=== PATIENT | female | born 1955 ===

== ENCOUNTER 2018-07-09 11:22 | Inpatient (IN) | payer MEDICAID, OTHER ==
[2018-07-09 11:28] VITALS: BMI 32.1
[2018-07-09 12:46] LABS: MEAN PLATELET VOLUME 8.7 fL (7.2-11.7); WHITE BLOOD COUNT 4.7 K/uL (4.8-10.8)
[2018-07-09 12:55] LABS: INR 1.1; PROTHROMBIN TIME 12.4 SECONDS (9.7-12.2)
[2018-07-09 13:02] LABS: ALB/GLOB RATIO 1.6 (1.0-2.1); ALBUMIN 3.9 g/dL (3.5-5.0); ALT/SGPT 11 U/L (9-52); AST/SGOT 18 U/L (14-36); BLOOD UREA NITROGEN 14 mg/dL (7-17); CALCIUM 8.4 mg/dl (8.6-10.4); GFR NON-AFRICAN AMERICAN > 60
--- NOTE | 2018-07-09 13:07 | RAD ---
Date of service: 07/09/2018 PROCEDURE: CHEST RADIOGRAPH, 1 VIEW HISTORY: shortness of breath COMPARISON: None available. FINDINGS: LUNGS: The lungs are well inflated. There is mild pulmonary venous congestion. PLEURA: No pneumothorax or pleural effusion. CARDIOVASCULAR: Mild cardiomegaly. No aortic atherosclerotic calcifications present. OSSEOUS STRUCTURES: Within normal limits for the patient's age. VISUALIZED UPPER ABDOMEN: Normal. OTHER FINDINGS: None. IMPRESSION: No active pulmonary disease.
[2018-07-09 13:11] LABS: RBC 2.62 Mil/uL (3.80-5.20)
[2018-07-09 13:12] LABS: HEMOGLOBIN 4.5 g/dL (11.0-16.0); MEAN CELL VOLUME 59.6 fL (81.0-99.0); MEAN CORPUSCULAR HEMOGLOBIN 17.2 pg (27.0-31.0)
[2018-07-09 13:13] LABS: B-TYPE NATRIURETIC PEPTIDE 243 pg/mL (0-900); MEAN CORPUSCULAR HGB CONC 28.9 g/dL (33.0-37.0); RED CELL DISTRIBUTION WIDTH 22.7 % (11.5-14.5)
[2018-07-09 14:13] LABS: EOS # 0.1 K/uL (0.0-0.7); LYMPH # 0.6 K/uL (1.0-4.3); MONO # 0.1 K/uL (0.0-0.8); NEUT # 3.9 K/uL (1.8-7.0)
[2018-07-09 14:51] LABS: IRON 12 ug/dL (37-170)
[2018-07-09 15:01] LABS: % IRON SATURATION 3 (20-55); TOTAL IRON BINDING CAPACITY 416 ug/dL (250-450)
[2018-07-09 15:31] LABS: FERRITIN 2.5 ng/mL
--- NOTE | 2018-07-09 15:53 | CP.PCM.CON ---
<Saul Cordero - Last Filed: 07/09/18 15:46> History of Present Illness - History of Present Illness History of Present Illness: PGY6 GI Fellow Consult Note Patient is a 63yo woman with PMHx significant for rheumatoid arthritis, HTN, DM, dyslipidemia and prior partial colectomy for pre-malignant colonic lesion who presented with complaint of generalized malaise. The patient admits to weakness, fatigue, myalgias and exertional dyspnea for two weeks duration with sudden onset. Prior to this, she was in her normal state of health. As she felt symptoms were worsening and she could not ambulate without great difficulty, she came to the ED for further evaluation. Routine blood work revealed iron deficiency anemia and leukopenia. Denies any new Rx or OTC medications, vitamins or herbal supplements. No recent hematochezia but has noted occasional dark stool. Does admit to accompanying mild, LUQ and LLQ pain for the last two days. No nausea, vomiting, weight loss, change in bowel habits. 12 system ROS performed and negative except where stated PMHx: See HPI; also questionable PFO PSHx: Partial colectomy (2015) FHx: Mother - HTN, CAD, COPD; Father - DM Social: Denies tobacco, EtOH or illicit drug use Endo: Last colonoscopy in Dec 2016 - unremarkable per patient Past Patient History - Past Social History Smoking Status: Never Smoked - CARDIAC Hx Hypercholesterolemia: Yes Hx Hypertension: Yes - ENDOCRINE/METABOLIC Hx Endocrine Disorders: Yes Hx Diabetes Mellitus Type 2: Yes - MUSCULOSKELETAL/RHEUMATOLOGICAL Hx Musculoskeletal Disorders: Yes Hx Arthritis: Yes Hx Rheumatoid Arthritis: Yes - PSYCHIATRIC Hx Substance Use: No - SURGICAL HISTORY Hx Surgeries: Yes Hx Section: Yes (x1) Hx Cholecystectomy: Yes Other/Comment: Colon, - ANESTHESIA Hx Anesthesia: Yes Meds Allergies/Adverse Reactions: Allergies Allergy/AdvReac Type Severity Reaction Status Date / Time No Known Allergies Allergy Verified 07/09/18 11:26 Physical Exam - Constitutional Appears: Non-toxic, No Acute Distress - Eye Exam Eye Exam: EOMI, PERRL - ENT Exam ENT Exam: Mucous Membranes Moist - Respiratory Exam Respiratory Exam: Clear to Auscultation Bilateral. absent: Rales, Rhonchi, Wheezes - Cardiovascular Exam Cardiovascular Exam: RRR, +S1, +S2 - GI/Abdominal Exam GI & Abdominal Exam: Normal Bowel Sounds, Soft. absent: Distended, Firm, Guarding, Organomegaly, Rigid, Tenderness - Extremities Exam Extremities exam: Positive for: normal inspection. Negative for: pedal edema - Neurological Exam Neurological exam: Alert, Oriented x3 - Psychiatric Exam Psychiatric exam: Normal Affect, Normal Mood - Skin Skin Exam: Dry, Pallor, Warm Results - Vital Signs Recent Vital Signs: Last Vital Signs Temp 98.6 F 07/09/18 15:42 Pulse 85 07/09/18 15:42 Resp 18 07/09/18 15:42 BP 151/66 H 07/09/18 15:42 Pulse Ox 98 07/09/18 15:42 - Labs Result Diagrams: 07/09/18 12:36 07/09/18 12:36 Labs: Laboratory Results - last 24 hr 07/09/18 07/09/18 07/09/18 12:36 12:36 12:36 WBC 4.7 L RBC 2.62 L Hgb 4.5 L* D Hct 15.6 L MCV 59.6 L D MCH 17.2 L MCHC 28.9 L RDW 22.7 H Plt Count 246 MPV 8.7 Neut % (Auto) 83.0 H Lymph % (Auto) 12.0 L [place] % (Auto) 2.0 Eos % (Auto) 3.0 Baso % (Auto) 0.0 Neut # (Auto) 3.9 Lymph # (Auto) 0.6 L [place] # (Auto) 0.1 Eos # (Auto) 0.1 Baso # (Auto) 0.0 Differential Comment Retic Count PT 12.4 H INR 1.1 APTT 29 D-Dimer, Quantitative 247 H Sodium 136 Potassium 3.7 Chloride 103 Carbon Dioxide 24 Anion Gap 13 BUN 14 Creatinine 0.5 L Est GFR ( Amer) > 60 Est GFR (Non-Af Amer) > 60 Random Glucose 208 H D Calcium 8.4 L Iron TIBC % Saturation Ferritin Total Bilirubin 0.7 AST 18 ALT 11 Alkaline Phosphatase 77 Lactate Dehydrogenase Troponin I < 0.0120 NT-Pro-B Natriuret Pep 243 Total Protein 6.4 Albumin 3.9 Globulin 2.5 Albumin/Globulin Ratio 1.6 Vitamin B12 Blood Type Antibody Screen 07/09/18 07/09/18 07/09/18 12:36 14:36 14:36 WBC RBC Hgb Hct MCV MCH MCHC RDW Plt Count MPV Neut % (Auto) Lymph % (Auto) [place] % (Auto) Eos % (Auto) Baso % (Auto) Neut # (Auto) Lymph # (Auto) [place] # (Auto) Eos # (Auto) Baso # (Auto) Differential Comment Retic Count 3.6 H D PT INR APTT D-Dimer, Quantitative Sodium Potassium Chloride Carbon Dioxide Anion Gap BUN Creatinine Est GFR ( Amer) Est GFR (Non-Af Amer) Random Glucose Calcium Iron 12 L TIBC 416 % Saturation 3 L Ferritin Total Bilirubin AST ALT Alkaline Phosphatase Lactate Dehydrogenase Troponin I NT-Pro-B Natriuret Pep Total Protein Albumin Globulin Albumin/Globulin Ratio Vitamin B12 Blood Type O POSITIVE Antibody Screen Negative 07/09/18 14:36 WBC RBC Hgb Hct MCV MCH MCHC RDW Plt Count MPV Neut % (Auto) Lymph % (Auto) [place] % (Auto) Eos % (Auto) Baso % (Auto) Neut # (Auto) Lymph # (Auto) [place] # (Auto) Eos # (Auto) Baso # (Auto) Differential Comment Retic Count PT INR APTT D-Dimer, Quantitative Sodium Potassium Chloride Carbon Dioxide Anion Gap BUN Creatinine Est GFR ( Amer) Est GFR (Non-Af Amer) Random Glucose Calcium Iron TIBC % Saturation Ferritin 2.5 Total Bilirubin AST ALT Alkaline Phosphatase Lactate Dehydrogenase 266 L Troponin I NT-Pro-B Natriuret Pep Total Protein Albumin Globulin Albumin/Globulin Ratio Vitamin B12 244 Blood Type Antibody Screen Assessment & Plan - Assessment and Plan (Free Text) Assessment: Patient is a 63yo woman with PMHx significant for rheumatoid arthritis, HTN, DM, dyslipidemia and prior partial colectomy for pre-malignant colonic lesion who presented with complaint of generalized malaise -Unexplained Iron deficiency anemia - HGB 4.5 on admission -History of pre-malignant colonic lesion s/p partial colectomy Plan: -Patient to be transfused 2 units PRBCs today -Plan for endoscopic evaluation tomorrow with EGD/Colon -Liquid diet today NPO past midnight -Give Dulcolax 10mg tab PO now -Golytely 4L tonight -Monitor CBC -Hematology consulted - Date & Time Date: 07/09/18 Time: 15:30 <Mohinder Mota - Last Filed: 07/09/18 16:09> Meds - Medications Medications: Current Medications Bisacodyl (Dulcolax) 10 mg PO ONCE ONE Stop: 07/09/18 16:16 Polyethylene Glycol/Electrolytes (Golytely) 4,000 ml PO ONCE ONE Stop: 07/09/18 17:03 Results - Vital Signs Recent Vital Signs: Last Vital Signs Temp 98.4 F 07/09/18 15:50 Pulse 79 07/09/18 15:50 Resp 20 07/09/18 15:50 BP 116/58 L 07/09/18 15:50 Pulse Ox 97 07/09/18 15:50 - Labs Result Diagrams: 07/09/18 12:36 07/09/18 12:36 Labs: Laboratory Results - last 24 hr 07/09/18 07/09/18 07/09/18 12:36 12:36 12:36 WBC 4.7 L RBC 2.62 L Hgb 4.5 L* D Hct 15.6 L MCV 59.6 L D MCH 17.2 L MCHC 28.9 L RDW 22.7 H Plt Count 246 MPV 8.7 Neut % (Auto) 83.0 H Lymph % (Auto) 12.0 L [place] % (Auto) 2.0 Eos % (Auto) 3.0 Baso % (Auto) 0.0 Neut # (Auto) 3.9 Lymph # (Auto) 0.6 L [place] # (Auto) 0.1 Eos # (Auto) 0.1 Baso # (Auto) 0.0 Differential Comment Retic Count PT 12.4 H INR 1.1 APTT 29 D-Dimer, Quantitative 247 H Sodium 136 Potassium 3.7 Chloride 103 Carbon Dioxide 24 Anion Gap 13 BUN 14 Creatinine 0.5 L Est GFR ( Amer) > 60 Est GFR (Non-Af Amer) > 60 Random Glucose 208 H D Calcium 8.4 L Iron TIBC % Saturation Ferritin Total Bilirubin 0.7 AST 18 ALT 11 Alkaline Phosphatase 77 Lactate Dehydrogenase Troponin I < 0.0120 NT-Pro-B Natriuret Pep 243 Total Protein 6.4 Albumin 3.9 Globulin 2.5 Albumin/Globulin Ratio 1.6 Vitamin B12 Folate Blood Type Antibody Screen 07/09/18 07/09/18 07/09/18 12:36 14:36 14:36 WBC RBC Hgb Hct MCV MCH MCHC RDW Plt Count MPV Neut % (Auto) Lymph % (Auto) [place] % (Auto) Eos % (Auto) Baso % (Auto) Neut # (Auto) Lymph # (Auto) [place] # (Auto) Eos # (Auto) Baso # (Auto) Differential Comment Retic Count 3.6 H D PT INR APTT D-Dimer, Quantitative Sodium Potassium Chloride Carbon Dioxide Anion Gap BUN Creatinine Est GFR ( Amer) Est GFR (Non-Af Amer) Random Glucose Calcium Iron 12 L TIBC 416 % Saturation 3 L Ferritin Total Bilirubin AST ALT Alkaline Phosphatase Lactate Dehydrogenase Troponin I NT-Pro-B Natriuret Pep Total Protein Albumin Globulin Albumin/Globulin Ratio Vitamin B12 Folate Blood Type O POSITIVE Antibody Screen Negative 07/09/18 14:36 WBC RBC Hgb Hct MCV MCH MCHC RDW Plt Count MPV Neut % (Auto) Lymph % (Auto) [place] % (Auto) Eos % (Auto) Baso % (Auto) Neut # (Auto) Lymph # (Auto) [place] # (Auto) Eos # (Auto) Baso # (Auto) Differential Comment Retic Count PT INR APTT D-Dimer, Quantitative Sodium Potassium Chloride Carbon Dioxide Anion Gap BUN Creatinine Est GFR ( Amer) Est GFR (Non-Af Amer) Random Glucose Calcium Iron TIBC % Saturation Ferritin 2.5 Total Bilirubin AST ALT Alkaline Phosphatase Lactate Dehydrogenase 266 L Troponin I NT-Pro-B Natriuret Pep Total Protein Albumin Globulin Albumin/Globulin Ratio Vitamin B12 244 Folate 19.0 Blood Type Antibody Screen Attending/Attestation - Attestation I have personally seen and examined this patient.: Yes I have fully participated in the care of the patient.: Yes I have reviewed all pertinent clinical information: Yes Notes (Text): 07/09/18 16:05 I have seen and examined patient with GI fellow. Agree with above documentation with the following additions. In brief, this is a 63 year old female with history of DM, HTN, rheumatoid arthritis, partial colectomy for unclear reasons who presents to hospital with complaint of progressive weakness and fatigue. She reports worsening exertional dyspnea for the past two weeks along with LLQ abdominal pain for the past 2 days. She otherwise denies nausea, vomiting, fever/chills, weight loss, rectal bleeding, melena. She had a colonoscopy in December 2016 which was normal as per patient. DM/HTN Rheumatoid arthritis History of partial colectomy - unclear reasons Microcytic iron deficiency anemia, symptomatic - Liquid diet as tolerated - Patient receiving 2 units PRBC transfusion, continue to monitor H/H - Awaiting hematology recommendations - Given profound anemia, will plan for EGD/colonoscopy tomorrow to rule out GI source - If workup negative, patient may benefit from body cross sectional imaging for further evaluation - Madan bowel preparation today, NPO after midnight
[2018-07-09] MEDS ORDERED: Bisacodyl 5mg EC Tab PO ONE (16:15)
[2018-07-09] MEDS ORDERED: Peg-Electrolyte Oral Soln 4L (Golytely) PO ONE (17:02)
--- NOTE | 2018-07-09 17:51 | C.PDOC ---
History Of Present Illness 63 y/o female presents to the ER complaining of weakness which has been present for the past 2 weeks. Patient reports that she has history of anemia and she required a blood transfusion last year. At the time, she was found to have a colon mass which was removed.Patient is also complaining of chronic bilateral knee pain. Denies having fever,chills, CP, SOB, nausea, vomiting, abdominal pain, blood in urine/stool and black/ melena stool. Chief Complaint (Nursing): Lower Extremity Problem/Injury History Per: Patient History/Exam Limitations: no limitations Onset/Duration Of Symptoms: Days Current Symptoms Are (Timing): Still Present Severity: Moderate Past Medical History Reviewed: Historical Data, Nursing Documentation, Vital Signs Vital Signs: Last Vital Signs Temp 98.6 F 07/09/18 16:28 Pulse 82 07/09/18 16:28 Resp 20 07/09/18 16:28 BP 119/57 L 07/09/18 16:28 Pulse Ox 99 07/09/18 16:28 - Medical History PMH: Arthritis, HTN, Hypercholesterolemia, Rheumatoid Arthritis Surgical History: Cholecystectomy Family History: States: No Known Family Hx - Social History Hx Alcohol Use: No Hx Substance Use: No - Immunization History Hx Tetanus Toxoid Vaccination: No Hx Influenza Vaccination: No Hx Pneumococcal Vaccination: No Review Of Systems Except As Marked, All Systems Reviewed And Found Negative. Constitutional: Positive for: Weakness. Negative for: Fever, Chills Cardiovascular: Negative for: Chest Pain Respiratory: Negative for: Cough, Shortness of Breath Gastrointestinal: Negative for: Nausea, Vomiting, Abdominal Pain, Diarrhea, Melena Genitourinary: Negative for: Dysuria, Hematuria Musculoskeletal: Positive for: Other (bilateral knee pain) Physical Exam - Physical Exam Appears: Non-toxic, No Acute Distress Skin: Warm, Dry, Pale Head: Atraumatic, Normacephalic Eye(s): bilateral: Normal Inspection Nose: Normal Oral Mucosa: Moist Neck: Supple Chest: Symmetrical Cardiovascular: Rhythm Regular, Murmur (systolic murmur) Respiratory: Normal Breath Sounds, No Rales, No Rhonchi, No Wheezing Gastrointestinal/Abdominal: Normal Exam, Soft, No Tenderness, No Guarding, No Rebound Extremity: Normal ROM, No Tenderness, No Swelling Neurological/Psych: Oriented x3, Normal Speech ED Course And Treatment - Laboratory Results Result Diagrams: 07/09/18 12:36 07/09/18 12:36 Lab Results: PT 12.4 SECONDS (9.7-12.2) H 07/09/18 12:36 INR 1.1 07/09/18 12:36 APTT 29 SECONDS (21-34) 07/09/18 12:36 D-Dimer, Quantitative 247 ng/mlDDU (0-243) H 07/09/18 12:36 Troponin I < 0.0120 ng/mL (0.00-0.120) 07/09/18 12:36 NT-Pro-B Natriuret Pep 243 pg/mL (0-900) 07/09/18 12:36 Total Bilirubin 0.7 mg/dL (0.2-1.3) 07/09/18 12:36 AST 18 U/L (14-36) 07/09/18 12:36 ALT 11 U/L (9-52) 07/09/18 12:36 Alkaline Phosphatase 77 U/L (38-126) 07/09/18 12:36 Total Protein 6.4 g/dL (6.3-8.3) 07/09/18 12:36 Albumin 3.9 g/dL (3.5-5.0) 07/09/18 12:36 Globulin 2.5 gm/dL (2.2-3.9) 07/09/18 12:36 Albumin/Globulin Ratio 1.6 (1.0-2.1) 07/09/18 12:36 O2 Sat by Pulse Oximetry: 99 (RA) Pulse Ox Interpretation: Normal Medical Decision Making Medical Decision Making: Plan: --Labs --ECG --CXR Updates: Case discussed with . Patient has been admitted under the service of . Disposition - Disposition Disposition: HOSPITALIZED Disposition Time: 13:00 Condition: FAIR - Clinical Impression Clinical Impression: Symptomatic anemia - Scribe Statement The provider has reviewed the documentation as recorded by the Juhi Lara Provider Attestation: All medical record entries made by the Juhi were at my direction and personally dictated by me. I have reviewed the chart and agree that the record accurately reflects my personal performance of the history, physical exam, medical decision making, and the department course for this patient. I have also personally directed, reviewed, and agree with the discharge instructions and disposition.
--- NOTE | 2018-07-09 20:16 | CP.PCM.PN ---
Subjective - Date & Time of Evaluation Date of Evaluation: 07/09/18 Time of Evaluation: 19:30 - Subjective Subjective: H&P dictated #[id number] Objective - Vital Signs/Intake and Output Vital Signs (last 24 hours): Temp Pulse Resp BP Pulse Ox 98.5 F 80 18 133/71 99 07/09/18 20:01 07/09/18 20:01 07/09/18 20:01 07/09/18 20:01 07/09/18 18:43 Intake and Output: 07/09/18 07/10/18 18:59 06:59 Intake Total 0 Balance 0 - Medications Medications: Current Medications Cyanocobalamin (Vitamin B12 1000 Mcg/Ml Inj) 1,000 mcg IM DAILY [facility] Last Admin: 07/09/18 18:00 Dose: 1,000 mcg Folic Acid (Folic Acid) 1 mg PO DAILY [facility] Insulin Human Regular (Novolin R) 0 unit SC ACHS [facility]; Protocol - Labs Labs: 07/09/18 12:36 07/09/18 12:36 PT 12.4 SECONDS (9.7-12.2) H 07/09/18 12:36 INR 1.1 07/09/18 12:36 APTT 29 SECONDS (21-34) 07/09/18 12:36
[2018-07-09] MEDS: (Novolin R) Insulin Human Regular 100 units/ml vial SC SCH (21:31)
[2018-07-10 03:37] LABS: SQUAMOUS EPITHIAL < 1 /hpf (0-5); URINE BACTERIA RARE (<OCC); URINE BILIRUBIN NEGATIVE (NEGATIVE); URINE BLOOD NEGATIVE (NEGATIVE); URINE CLARITY Clear (Clear); URINE COLOR Yellow (YELLOW); URINE GLUCOSE (UA) NORMAL (Normal); URINE LEUKOCYTE ESTERASE NEG Leu/uL (Negative); URINE PROTEIN NEGATIVE (NEGATIVE); URINE UROBILINOGEN NORMAL mg/dL (0.2-1.0)
[2018-07-10 07:04] LABS: BASO % 1.1 % (0.0-2.0); EOS # 0.2 K/uL (0.0-0.7); EOS % 3.4 % (0.0-4.0); LYMPH % 22.2 % (20.0-40.0); MEAN CORPUSCULAR HEMOGLOBIN 19.7 pg (27.0-31.0); MEAN CORPUSCULAR HGB CONC 29.2 g/dL (33.0-37.0); MEAN PLATELET VOLUME 8.5 fL (7.2-11.7); MONO # 0.4 K/uL (0.0-0.8); NEUT # 2.9 K/uL (1.8-7.0); NEUT % 65.3 % (50.0-75.0); NRBC % 0.8 % (0.0-2.0); RBC 3.15 Mil/uL (3.80-5.20); RED CELL DISTRIBUTION WIDTH 30.8 % (11.5-14.5); WHITE BLOOD COUNT 4.5 K/uL (4.8-10.8)
[2018-07-10 07:13] LABS: INR 1.2; PROTHROMBIN TIME 13.1 SECONDS (9.7-12.2)
[2018-07-10 07:19] LABS: HEMOGLOBIN 6.2 g/dL (11.0-16.0); MEAN CELL VOLUME 67.3 fL (81.0-99.0)
[2018-07-10 07:46] LABS: ALB/GLOB RATIO 1.4 (1.0-2.1); ALBUMIN 3.4 g/dL (3.5-5.0); ALT/SGPT 15 U/L (9-52); AST/SGOT 17 U/L (14-36); BLOOD UREA NITROGEN 11 mg/dL (7-17); CALCIUM 8.1 mg/dl (8.6-10.4); GFR NON-AFRICAN AMERICAN > 60; HDL CHOLESTEROL 52 mg/dL (30-70)
[2018-07-10] MEDS: (Novolin R) Insulin Human Regular 100 units/ml vial SC SCH ×4 (07:50→22:07)
[2018-07-10 08:02] LABS: LDL CHOLESTEROL 52 mg/dL (0-129)
--- NOTE | 2018-07-10 09:03 | HP ---
CHIEF COMPLAINT: Progressive worsening of shortness of breath on exertion, fatigue, weakness and dizziness. HISTORY OF PRESENT ILLNESS: Ms. Prather is a 63-year-old female with past medical history of rheumatoid arthritis, hypertension, diabetes mellitus, hyperlipidemia, anemia, underwent partial colectomy for possible precancerous tumor of the colon. Underwent surgery at [facility]. Had last colonoscopy done in 2017. As per her, it was negative who went back to [place], stayed there for a year, returned recently. Has been taking medications from [place]. Prior to going to [place], she was following up with , primary care physician. Now has not seen any primary in the past year. Came into the emergency room with progressive worsening of fatigue, weakness, dyspnea on exertion, dizziness, progressively getting worse over the past two weeks. In the emergency room, the patient was found to be having very low H and H, and the patient is being admitted for further management. When I examined, she denies any headache, dizziness at rest. Denies any chest pain, shortness of breath at rest but complaining of dyspnea on exertion and progressively getting worse. Denies using any recent medications, [id number] medication, any pain medication other than methotrexate given by the physician. Denies using any prednisone recently. Denies any nausea, vomiting, fresh blood or dark colored stools. Denies any vaginal bleeding. She has been having two-day history of mild left lower quadrant discomfort, complaining of decreased appetite. Denies any urinary complaints. Denies any other neurologic symptoms. PAST MEDICAL HISTORY: As described, hypertension, diabetes mellitus, hyperlipidemia, rheumatoid arthritis, anemia, premalignant tumor of the colon diagnosed about three years ago. PAST SURGICAL HISTORY: Underwent varicose vein surgery, , cholecystectomy, and partial colectomy. FAMILY HISTORY: Throat cancer in father. Mother from questionable lung complications. PERSONAL HISTORY: She is , having three children. Lives with family. She is unemployed. SOCIAL HISTORY: Denies smoking, alcohol, or drug abuse. ALLERGIES: NO KNOWN DRUG ALLERGIES. MEDICATIONS: Include methotrexate 2.5 mg daily, folic acid 0.4 mg daily, metformin 850 mg p.o. b.i.d., losartan 25 mg daily, Lipitor 10 mg p.o. at bedtime, Protonix 40 mg daily. REVIEW OF SYSTEMS: As described in history of present illness. All other systems reviewed and were found to be negative. PHYSICAL EXAMINATION: GENERAL: Middle-aged female lying in bed, in no acute distress. VITAL SIGNS: Blood pressure 158/70, pulse 84, respirations 20, temperature 98.1 degrees Fahrenheit, O2 sat 100% on room air. HEENT: Pupils equal, round, reacting to light and accommodation. Extraocular muscles intact. No icterus. Marked pallor. No oral thrush. No pharyngeal congestion. NECK: Supple. No JVD. LUNGS: Bilateral vesicular breath sounds. No wheezing. No rhonchi. CARDIOVASCULAR SYSTEM: S1, S2 present. Systolic murmur heard. ABDOMEN: Soft, nontender. Bowel sounds present. No guarding. No rigidity. No rebound tenderness noted. CENTRAL NERVOUS SYSTEM: Alert, awake, oriented x3. No focal deficits noted. EXTREMITIES: No edema. Palpable peripheral pulses. LABORATORY DATA: Done from the emergency room, WBC 4.7, hemoglobin 4.5, hematocrit 15.6, platelets 246. PT 12.4, INR 1.1, PTT 29, d-dimer 247. Sodium 136, potassium 3.7, chloride 103, bicarb 24, BUN 14, creatinine 0.5, glucose 208, calcium 8.4. Iron 12, TIBC 416, iron saturation 3, ferritin 2.5, total bilirubin 0.7, AST 18, ALT 11, alkaline phosphatase 77, LDH 266, troponin less than 0.012, proBNP 243, total protein 6.4, albumin 3.9, vitamin B12 of 244, folate 19. DIAGNOSTIC DATA: Chest x-ray negative for any infiltrate. EKG consistent with normal sinus rhythm at 83 beats per minutes. No acute ST-T changes noted. ASSESSMENT: A middle-aged female with history of hypertension, diabetes mellitus, hyperlipidemia, rheumatoid arthritis, history of anemia, status post partial colectomy for possible premalignant lesion of the colon about three years ago. Last colonoscopy was in 2017. Has been taking medication from [place], came into the emergency room with two-week history of progressive worsening of fatigue, weakness, dizziness, dyspnea on exertion, decreased appetite. In the ED, the patient was found to be having hemoglobin of 4.5, and the patient is being admitted for further evaluation. 1. Severe symptomatic anemia. 2. Iron-deficiency anemia and low B12 levels. 3. Hypertension. 4. Diabetes mellitus. 5. Hyperlipidemia. 6. Rheumatoid arthritis. 7. Prior history of partial colectomy for premalignant lesion of the colon. PLAN: The patient is being admitted to telemetry. Received one unit of PRBC in the ED. We will transfuse another unit of PRBC. Repeat serial CBCs. Retic count is elevated. We will supplement B12. GI consult appreciated for possible colonoscopy and EGD in a.m. The patient wants to be kept n.p.o. We will repeat labs in a.m. We will check CEA level. We will consider CT scan of the chest, abdomen, and pelvis. We will obtain Hematology consult with Dr. Kirby. We will add further recommendation as her clinical course progresses. Conrad Silva MD
--- NOTE | 2018-07-10 09:30 | CP.PCM.PN ---
Subjective - Date & Time of Evaluation Date of Evaluation: 07/10/18 Time of Evaluation: 09:30 - Subjective Subjective: Progress note dictated #[id number] Objective - Vital Signs/Intake and Output Vital Signs (last 24 hours): Temp Pulse Resp BP Pulse Ox 97.8 F 69 20 142/71 98 07/10/18 07:30 07/10/18 07:56 07/10/18 07:30 07/10/18 07:30 07/10/18 07:30 Intake and Output: 07/10/18 07/10/18 06:59 18:59 Intake Total 1400 Balance 1400 - Medications Medications: Current Medications Cyanocobalamin (Vitamin B12 1000 Mcg/Ml Inj) 1,000 mcg IM DAILY [facility] Last Admin: 07/09/18 18:00 Dose: 1,000 mcg Folic Acid (Folic Acid) 1 mg PO DAILY [facility] Insulin Human Regular (Novolin R) 0 unit SC ACHS [facility]; Protocol Last Admin: 07/10/18 07:50 Dose: Not Given - Labs Labs: 07/10/18 06:56 07/10/18 06:56 PT 13.1 SECONDS (9.7-12.2) H 07/10/18 06:56 INR 1.2 07/10/18 06:56 APTT 30 SECONDS (21-34) 07/10/18 06:56
[2018-07-10] MEDS ORDERED: Lactated Ringer's 1,000 ML IV ONE (13:40)
[2018-07-10] MEDS ORDERED: Propofol 10 mg/ml Inj (20 ML) ONE (13:42)
[2018-07-10] MEDS ORDERED: Midazolam 2 MG/2 ML VIAL ONE (13:43)
--- NOTE | 2018-07-10 14:32 | CP.PCM.PN ---
Subjective - Date & Time of Evaluation Date of Evaluation: 07/10/18 Time of Evaluation: 14:29 - Subjective Subjective: Patient seen and examined, no acute events overnight. She is seen resting in bed comfortably. She denies abdominal pain, nausea, vomiting, fever/chills, melena, rectal bleeding. s/p EGD and colonoscopy today showing gastritis, hiatal hernia, sigmoid diverticulosis, ileocolonic anastomosis, internal hemorrhoids. Objective - Vital Signs/Intake and Output Vital Signs (last 24 hours): Temp Pulse Resp BP Pulse Ox 98 F 73 20 156/68 H 98 07/10/18 13:09 07/10/18 13:09 07/10/18 13:09 07/10/18 13:09 07/10/18 13:07 Intake and Output: 07/10/18 07/10/18 06:59 18:59 Intake Total 1400 87 Balance 1400 87 - Medications Medications: Current Medications Cyanocobalamin (Vitamin B12 1000 Mcg/Ml Inj) 1,000 mcg IM DAILY [facility] Last Admin: 07/10/18 10:22 Dose: 1,000 mcg Folic Acid (Folic Acid) 1 mg PO DAILY [facility] Last Admin: 07/10/18 10:22 Dose: 1 mg Furosemide (Lasix) 20 mg IVP ONCE PRN PRN Reason: in between blood transfusions Insulin Human Regular (Novolin R) 0 unit SC [facility]; Protocol Last Admin: 07/10/18 11:40 Dose: Not Given - Labs Labs: 07/10/18 06:56 07/10/18 06:56 PT 13.1 SECONDS (9.7-12.2) H 07/10/18 06:56 INR 1.2 07/10/18 06:56 APTT 30 SECONDS (21-34) 07/10/18 06:56 Assessment and Plan - Assessment and Plan (Free Text) Assessment: DM/HTN Hyperlipidemia Iron deficiency anemia Prior history of partial colectomy, unclear reason s/p EGD and colonoscopy today without any evidence of recent or active bleeding noted Plan: - Advance diet as tolerated - H/H stable, s/p PRBC transfusion, continue to monitor - Follow up hematology recommendations - Would pursue alternate sources of iron deficiency anemia including hematologic, 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 Please reconsult as necessary, thank you.
[2018-07-10 15:09] VITALS: RESP 20
--- NOTE | 2018-07-10 16:02 | PN ---
DATE: 07/10/2018 SUBJECTIVE: The patient is seen and examined at bedside. The patient offers no new complaints. She is complaining of less shortness of breath this morning. Denies any other complaints. PHYSICAL EXAMINATION: GENERAL: Middle-aged female, lying in bed, in no acute distress. VITAL SIGNS: Blood pressure 142/71, pulse 69, respirations 20, temperature 97.8 degrees Fahrenheit, O2 saturation 98% on room air. HEENT: Pupils equal, round, and reacting to light and accommodation. Extraocular muscles are intact. No icterus. No pallor. No oral thrush. No pharyngeal congestion. NECK: Supple. No JVD. LUNGS: Bilateral vesicular breath sounds. No wheezing. No rhonchi. CARDIOVASCULAR: S1 and S2 present, regular. ABDOMEN: Soft and nontender. Bowel sounds present. No guarding. No rigidity. No rebound tenderness noted. CENTRAL NERVOUS SYSTEM: Alert, awake, oriented x3. No focal deficits noted. EXTREMITIES: No edema. Palpable peripheral pulses. MEDICATIONS: Include vitamin B12 1000 mcg daily, folic acid 1 mg daily, Lasix 20 mg IV push p.r.n. between blood transfusion. LABORATORY DATA: Done from this morning: WBC 4.5, hemoglobin 6.2, hematocrit 21.2, platelets 191. PT 13.1, INR 1, and PTT 30. Sodium 137, potassium 4, chloride 106, bicarb 26, BUN 11, creatinine 0.5, glucose 102, hemoglobin A1c 5.8, calcium 8.1, phosphorus 3.7, magnesium 1.8, CEA is 0.4, TSH is 2.33, cholesterol is 108, triglycerides 102, LDL 52, HDL 52. UA negative. 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 Received 2 units of PRBC with slightly improved hemoglobin. Will supplement B12. Start iron supplementation. The patient is scheduled for colonoscopy and esophagogastroduodenoscopy this morning. We will follow up with GI and Hematology. We will repeat labs in a.m. Conrad Silva MD [facility] # [id number]
--- NOTE | 2018-07-10 18:08 | CARD ---
APPROVED REPORT Date of service: 07/09/2018 EKG Measurement Heart [id number] <Conclusion> Normal sinus rhythm Normal ECG
[2018-07-10] MEDS: Aluminum Hydroxide/Magnesium Hydroxide Susp (30 mL) PO PRN (19:50)
--- NOTE | 2018-07-10 21:08 | CP.PCM.CON ---
History of Present Illness - History of Present Illness History of Present Illness: 63 year old female with a history of HTN, DM, HL, rheumatoid arthritis, ?colon cancer s/p surgery 3 years ago, admitted with symptomatic anemia. The patient notes to progressive dyspnea with exertion for the past 1-2 weeks. She denies abnormal bleeding and bruising. She notes to abdominal discomfort and diminished appetite. In the ER she was found to have a hgb of 4.6. She is s/p 2U PRBC, EGD, and colonoscopy. Past medical history: HTN, DM, HL, rheumatoid arthritis, ?colon cancer s/p surgery 3 years ago. Past surgical history: Colon surgery Family history: Denies hematologic and oncologic problems Social history: Denies tobacco, alcohol, and illicit drug use. Allergies: NKA Review of systems: All remaining review of systems including HEENT, cardiovascular, respiratory, gastrointestinal, genitourinary, musculoskeletal, dermatologic, neurologic, and psychiatric are negative unless mentioned in the HPI. Past Patient History - Past Social History Smoking Status: Never Smoked - CARDIAC Hx Hypercholesterolemia: Yes Hx Hypertension: Yes - ENDOCRINE/METABOLIC Hx Endocrine Disorders: Yes Hx Diabetes Mellitus Type 2: Yes - MUSCULOSKELETAL/RHEUMATOLOGICAL Hx Arthritis: Yes Hx Rheumatoid Arthritis: Yes - PSYCHIATRIC Hx Substance Use: No - SURGICAL HISTORY Hx Cholecystectomy: Yes - ANESTHESIA Hx Anesthesia: Yes Hx Anesthesia Reactions: No Hx Malignant Hyperthermia: No Has any member of the family had a problem w/ anesthesia?: No Meds Allergies/Adverse Reactions: Allergies Allergy/AdvReac Type Severity Reaction Status Date / Time No Known Allergies Allergy Verified 07/09/18 11:26 - Medications Medications: Current Medications Al Hydrox/Mg Hydrox/Simethicone (Maalox 30 Ml) 30 ml PO Q8 PRN PRN Reason: Indigestion / Heartburn Last Admin: 07/10/18 19:50 Dose: 30 ml Cyanocobalamin (Vitamin B12 1000 Mcg/Ml Inj) 1,000 mcg IM DAILY [facility] Last Admin: 07/10/18 10:22 Dose: 1,000 mcg Folic Acid (Folic Acid) 1 mg PO DAILY [facility] Last Admin: 07/10/18 10:22 Dose: 1 mg Furosemide (Lasix) 20 mg IVP ONCE PRN PRN Reason: in between blood transfusions Last Admin: 07/10/18 18:38 Dose: 20 mg Insulin Human Regular (Novolin R) 0 unit SC [facility]; Protocol Last Admin: 07/10/18 17:30 Dose: 1 unit Physical Exam - Head Exam Head Exam: ATRAUMATIC - Eye Exam Eye Exam: Normal appearance - ENT Exam ENT Exam: Mucous Membranes Dry - Respiratory Exam Respiratory Exam: NORMAL BREATHING PATTERN - Cardiovascular Exam Cardiovascular Exam: +S1, +S2 - GI/Abdominal Exam GI & Abdominal Exam: Normal Bowel Sounds - Extremities Exam Extremities exam: Positive for: normal inspection - Neurological Exam Neurological exam: Oriented x3 - Psychiatric Exam Psychiatric exam: Normal Affect, Normal Mood - Skin Skin Exam: Warm Results - Vital Signs Recent Vital Signs: Last Vital Signs Temp 98.1 F 07/10/18 21:06 Pulse 71 07/10/18 21:06 Resp 20 07/10/18 21:06 BP 151/76 H 07/10/18 21:06 Pulse Ox 97 07/10/18 15:03 - Labs Result Diagrams: 07/10/18 06:56 07/10/18 06:56 Labs: Laboratory Results - last 24 hr 07/09/18 07/09/18 07/09/18 12:36 12:36 21:16 WBC RBC Hgb Hct MCV MCH MCHC RDW Plt Count MPV Neut % (Auto) Lymph % (Auto) Bailey % (Auto) Eos % (Auto) Baso % (Auto) Neut # (Auto) Lymph # (Auto) Bailey # (Auto) Eos # (Auto) Baso # (Auto) Smear Path Review PT INR APTT Sodium Potassium Chloride Carbon Dioxide Anion Gap BUN Creatinine Est GFR ( Amer) Est GFR (Non-Af Amer) POC Glucose (mg/dL) 230 H Random Glucose Hemoglobin A1c Calcium Phosphorus Magnesium Total Bilirubin AST ALT Alkaline Phosphatase Total Protein Albumin Globulin Albumin/Globulin Ratio Triglycerides Cholesterol LDL Cholesterol Direct HDL Cholesterol Carcinoembryonic Ag TSH 3rd Generation Urine Color Urine Clarity Urine pH Ur Specific [place] Urine Protein Urine Glucose (UA) Urine Ketones Urine Blood Urine Nitrate Urine Bilirubin Urine Urobilinogen Ur Leukocyte Esterase Urine WBC (Auto) Urine RBC (Auto) Ur Squamous Epith Cells Urine Bacteria Blood Type O POSITIVE Antibody Screen Negative 07/09/18 07/10/18 07/10/18 21:28 03:21 06:25 WBC RBC Hgb Hct MCV MCH MCHC RDW Plt Count MPV Neut % (Auto) Lymph % (Auto) Bailey % (Auto) Eos % (Auto) Baso % (Auto) Neut # (Auto) Lymph # (Auto) Bailey # (Auto) Eos # (Auto) Baso # (Auto) Smear Path Review PT INR APTT Sodium Potassium Chloride Carbon Dioxide Anion Gap BUN Creatinine Est GFR ( Amer) Est GFR (Non-Af Amer) POC Glucose (mg/dL) 223 H 102 Random Glucose Hemoglobin A1c Calcium Phosphorus Magnesium Total Bilirubin AST ALT Alkaline Phosphatase Total Protein Albumin Globulin Albumin/Globulin Ratio Triglycerides Cholesterol LDL Cholesterol Direct HDL Cholesterol Carcinoembryonic Ag TSH 3rd Generation Urine Color Yellow Urine Clarity Clear Urine pH 6.0 Ur Specific [place] 1.020 Urine Protein Negative Urine Glucose (UA) Normal Urine Ketones Negative Urine Blood Negative Urine Nitrate Negative Urine Bilirubin Negative Urine Urobilinogen Normal Ur Leukocyte Esterase Neg Urine WBC (Auto) 2 Urine RBC (Auto) 1 Ur Squamous Epith Cells < 1 Urine Bacteria Rare Blood Type Antibody Screen 07/10/18 07/10/18 07/10/18 06:56 06:56 06:56 WBC 4.5 L RBC 3.15 L Hgb 6.2 L* Hct 21.2 L MCV 67.3 L D MCH 19.7 L MCHC 29.2 L RDW 30.8 H Plt Count 191 MPV 8.5 Neut % (Auto) 65.3 Lymph % (Auto) 22.2 Bailey % (Auto) 8.0 Eos % (Auto) 3.4 Baso % (Auto) 1.1 Neut # (Auto) 2.9 Lymph # (Auto) 1.0 Bailey # (Auto) 0.4 Eos # (Auto) 0.2 Baso # (Auto) 0.0 Smear Path Review PT 13.1 H INR 1.2 APTT 30 Sodium 137 Potassium 4.0 Chloride 106 Carbon Dioxide 26 Anion Gap 9 L BUN 11 Creatinine 0.5 L Est GFR ( Amer) > 60 Est GFR (Non-Af Amer) > 60 POC Glucose (mg/dL) Random Glucose 96 D Hemoglobin A1c Calcium 8.1 L Phosphorus 3.7 Magnesium 1.8 Total Bilirubin 0.9 AST 17 ALT 15 Alkaline Phosphatase 68 Total Protein 5.7 L Albumin 3.4 L Globulin 2.3 Albumin/Globulin Ratio 1.4 Triglycerides 102 Cholesterol 108 LDL Cholesterol Direct 52 HDL Cholesterol 52 Carcinoembryonic Ag 0.4 TSH 3rd Generation 2.33 Urine Color Urine Clarity Urine pH Ur Specific [place] Urine Protein Urine Glucose (UA) Urine Ketones Urine Blood Urine Nitrate Urine Bilirubin Urine Urobilinogen Ur Leukocyte Esterase Urine WBC (Auto) Urine RBC (Auto) Ur Squamous Epith Cells Urine Bacteria Blood Type Antibody Screen 07/10/18 07/10/18 06:56 11:20 WBC RBC Hgb Hct MCV MCH MCHC RDW Plt Count MPV Neut % (Auto) Lymph % (Auto) Bailey % (Auto) Eos % (Auto) Baso % (Auto) Neut # (Auto) Lymph # (Auto) Bailey # (Auto) Eos # (Auto) Baso # (Auto) Smear Path Review PT INR APTT Sodium Potassium Chloride Carbon Dioxide Anion Gap BUN Creatinine Est GFR ( Amer) Est GFR (Non-Af Amer) POC Glucose (mg/dL) 114 H Random Glucose Hemoglobin A1c 5.8 Calcium Phosphorus Magnesium Total Bilirubin AST ALT Alkaline Phosphatase Total Protein Albumin Globulin Albumin/Globulin Ratio Triglycerides Cholesterol LDL Cholesterol Direct HDL Cholesterol Carcinoembryonic Ag TSH 3rd Generation Urine Color Urine Clarity Urine pH Ur Specific [place] Urine Protein Urine Glucose (UA) Urine Ketones Urine Blood Urine Nitrate Urine Bilirubin Urine Urobilinogen Ur Leukocyte Esterase Urine WBC (Auto) Urine RBC (Auto) Ur Squamous Epith Cells Urine Bacteria Blood Type Antibody Screen Assessment & Plan (1) Anemia Assessment and Plan: hypoproliferative erythroid response - no evidence of hemolysis iron and b12 deficiency on B12 supplementation, will start IV iron EGD/colonoscopy findings noted; ?chronic intermittent internal hemorrhoid bleed UA negative for blood will order CT A/P with PO+IV contrast to rule out pathology contributing to anemia outpatient capsule endoscopy Status: Acute (2) Leukopenia Assessment and Plan: likely benign Thank you for this interesting consult. Status: Acute
[2018-07-11 07:32] LABS: BASO # 0.1 K/uL (0.0-0.2); EOS # 0.3 K/uL (0.0-0.7); EOS % 3.7 % (0.0-4.0); LYMPH # 1.1 K/uL (1.0-4.3); LYMPH % 16.4 % (20.0-40.0); MEAN CORPUSCULAR HEMOGLOBIN 22.3 pg (27.0-31.0); MEAN CORPUSCULAR HGB CONC 31.4 g/dL (33.0-37.0); MEAN PLATELET VOLUME 8.5 fL (7.2-11.7); MONO # 0.6 K/uL (0.0-0.8); MONO % 8.4 % (0.0-10.0); NEUT # 4.8 K/uL (1.8-7.0); NEUT % 70.5 % (50.0-75.0); NRBC % 0.8 % (0.0-2.0); RBC 4.07 Mil/uL (3.80-5.20); RED CELL DISTRIBUTION WIDTH 31.3 % (11.5-14.5)
[2018-07-11 07:44] LABS: ALB/GLOB RATIO 1.4 (1.0-2.1); ALBUMIN 3.5 g/dL (3.5-5.0); ALT/SGPT 21 U/L (9-52); AST/SGOT 17 U/L (14-36); BLOOD UREA NITROGEN 11 mg/dL (7-17); CALCIUM 8.4 mg/dl (8.6-10.4); GFR NON-AFRICAN AMERICAN > 60
[2018-07-11 08:01] LABS: HEMOGLOBIN 9.1 g/dL (11.0-16.0); MEAN CELL VOLUME 71.1 fL (81.0-99.0); WHITE BLOOD COUNT 6.8 K/uL (4.8-10.8)
[2018-07-11 08:16] LABS: FERRITIN 4.6 ng/mL
[2018-07-11 08:46] LABS: FOLATE > 20.0 ng/mL
[2018-07-11] MEDS: (Novolin R) Insulin Human Regular 100 units/ml vial SC SCH ×4 (09:02→22:12)
--- NOTE | 2018-07-11 09:38 | CP.PCM.PN ---
Subjective - Date & Time of Evaluation Date of Evaluation: 07/11/18 Time of Evaluation: 09:38 - Subjective Subjective: Progress note dictated # [id number] Objective - Vital Signs/Intake and Output Vital Signs (last 24 hours): Temp Pulse Resp BP Pulse Ox 98.2 F 66 20 145/78 97 07/11/18 07:20 07/11/18 07:20 07/11/18 07:20 07/11/18 07:20 07/11/18 07:20 Intake and Output: 07/11/18 07/11/18 06:59 18:59 Intake Total 1115 Output Total 1375 Balance -260 - Medications Medications: Current Medications Al Hydrox/Mg Hydrox/Simethicone (Maalox 30 Ml) 30 ml PO Q8 PRN PRN Reason: Indigestion / Heartburn Last Admin: 07/10/18 19:50 Dose: 30 ml Cyanocobalamin (Vitamin B12 1000 Mcg/Ml Inj) 1,000 mcg IM DAILY [facility] Last Admin: 07/10/18 10:22 Dose: 1,000 mcg Ferric Sodium Gluconate Complex (Ferrlecit) 125 mg IVPB DAILY [facility] Stop: 07/19/18 10:01 Folic Acid (Folic Acid) 1 mg PO DAILY [facility] Last Admin: 07/10/18 10:22 Dose: 1 mg Furosemide (Lasix) 20 mg IVP ONCE PRN PRN Reason: in between blood transfusions Last Admin: 07/10/18 18:38 Dose: 20 mg Insulin Human Regular (Novolin R) 0 unit SC [facility]; Protocol Last Admin: 07/11/18 09:02 Dose: Not Given - Labs Labs: 07/11/18 07:11 07/11/18 07:11 PT 13.1 SECONDS (9.7-12.2) H 07/10/18 06:56 INR 1.2 07/10/18 06:56 APTT 30 SECONDS (21-34) 07/10/18 06:56
[2018-07-11] MEDS: Ferric Sodium Gluconat Complex 62.5 mg/5 ml Vial IVPB SCH (10:12)
[2018-07-11] MEDS ORDERED: Iohexol 240 (50 ml) PO ONE (10:15)
[2018-07-11] MEDS: Pantoprazole 40 mg EC Tab PO SCH (10:52)
--- NOTE | 2018-07-11 11:04 | CT ---
Date of service: 07/11/2018 PROCEDURE: CT HEAD WITHOUT CONTRAST. HISTORY: Dizziness COMPARISON: None available. TECHNIQUE: Axial computed tomography images were obtained through the head/brain without intravenous contrast. Radiation dose: Total exam DLP = 1046.82 mGy-cm. This CT exam was performed using one or more of the following dose reduction techniques: Automated exposure control, adjustment of the mA and/or kV according to patient size, and/or use of iterative reconstruction technique. FINDINGS: HEMORRHAGE: No acute parenchymal, subarachnoid nor extra-axial hemorrhage BRAIN: Suspect very minimal chronic periventricular white matter ischemic changes. Moderate generalized volume loss. Vascular calcifications both carotid siphons.. VENTRICLES: No obstructive hydrocephalus. CALVARIUM: Unremarkable. PARANASAL SINUSES: Unremarkable as visualized. No significant inflammatory changes. MASTOID AIR CELLS: Unremarkable as visualized. No inflammatory changes. OTHER FINDINGS: None. IMPRESSION: No acute intracranial hemorrhage. Suspect minor chronic periventricular white matter ischemic changes. Moderate generalized volume loss
[2018-07-11] MEDS: Aluminum Hydroxide/Magnesium Hydroxide Susp (30 mL) PO PRN ×2 (12:28→17:50)
--- NOTE | 2018-07-11 12:33 | CARD ---
APPROVED REPORT Date of service: 07/11/2018 EXAM: Two-dimensional and M-mode echocardiogram with Doppler and color Doppler. Other Information Quality : GoodRhythm : INDICATION Dyspnea Fatigue RISK FACTORS Hypertension Diabetes 2D DIMENSIONS IVSd0.8 (0.7-1.1cm)Aortic Root (2D)2.4 (2.0-3.7cm) LVDd4.9 (3.9-5.9cm)PWd0.8 (0.7-1.1cm) LA Zbungd85 (18-58mL)LVDs3.2 (2.5-4.0cm) FS (%) 34.4 %LVEF (%)63.2 (>50%) LVEF (Manrique's)65.58 %IVC0.00 cm M-Mode DIMENSIONS Left Atrium (MM)3.67 (2.5-4.0cm)IVSd0.76 (0.7-1.1cm) Aortic Root2.70 (2.2-3.7cm)LVDd5.01 (4.0-5.6cm) Aortic Cusp Exc.1.76 (1.5-2.0cm)PWd0.82 (0.7-1.1cm) FS (%) 28 %LVDs3.61 (2.0-3.8cm) TAPSE14.58 cmLVEF (%)54 (>50%) Mitral Valve MV E Urofjgvu438.9cm/sMV A Jhlwdogj048.8cm/sE/A ratio1.0 TDI Lateral E' Peak V10.93cm/sMedial E' Peak V7.00cm/sE/Lateral E'9.3 E/Medial E'14.6 Tricuspid Valve TR Peak Suzneayb560bq/sTR Peak Gr.28agYvFSIK26hdOc LEFT VENTRICLE The left ventricle is normal size. There is normal left ventricular wall thickness. Left ventricle systolic function is normal. The Ejection Fraction is 65-70%. There is normal LV segmental wall motion. Transmitral Doppler flow pattern is Grade I-abnormal relaxation pattern. There is no ventricular septal defect visualized. RIGHT VENTRICLE The right ventricle is normal size. The right ventricular systolic function is normal. ATRIA The left atrium is mildly dilated. The right atrium size is normal. AORTIC VALVE The aortic valve is mildly sclerotic. The aortic valve is tri-cuspid. No aortic regurgitation is present. There is no aortic valvular stenosis. MITRAL VALVE The mitral valve is normal in structure. There is no evidence of mitral valve prolapse. There is no mitral valve regurgitation noted. TRICUSPID VALVE The tricuspid valve is normal in structure. There is mild tricuspid regurgitation. Right ventricular systolic pressure is estimated at 40-50 mmHg. There is moderate pulmonary hypertension. PULMONIC VALVE The pulmonic valve is not well visualized. There is trace pulmonic valvular regurgitation. GREAT VESSELS The aortic root is normal in size. The ascending aorta is normal in size. The IVC is normal in size and collapses >50% with inspiration. PERICARDIAL EFFUSION There is no pericardial effusion. <Conclusion> Left ventricle systolic function is normal. The Ejection Fraction is 65-70%. Transmitral Doppler flow pattern is Grade I-abnormal relaxation pattern. There is moderate pulmonary hypertension.
[2018-07-11] MEDS ORDERED: Iohexol 300 100 ML IJ ONE (16:06)
--- NOTE | 2018-07-11 17:54 | CT ---
Date of service: 07/11/2018 PROCEDURE: CT Abdomen and Pelvis with contrast HISTORY: Anemia and history of colon cancer COMPARISON: No prior study available comparison. High the height TECHNIQUE: Contiguous helical/transaxial sections of the abdomen pelvis performed following oral and intravenous injection of approximately 100 cc Omnipaque 300 contrast material. Additional 2D sagittal and coronal reformats generated Radiation dose: Total exam DLP = 748.05 mGy-cm. This CT exam was performed using one or more of the following dose reduction techniques: Automated exposure control, adjustment of the mA and/or kV according to patient size, and/or use of iterative reconstruction technique. FINDINGS: LOWER THORAX: Unremarkable. Suspect trace bilateral effusions right larger than left and minimal bibasilar atelectasis. Minimal scarring changes also seen in both lung bases. Heart appears mildly enlarged. No significant pericardial effusion. There is a large hiatal hernia. LIVER: Liver exhibits relatively normal size measuring approximately 15.4 cm in CC dimension. Minor fatty hepatic infiltration. No obvious hepatic masses or collections identified on this study. GALLBLADDER AND BILE DUCTS: Cholecystectomy. PANCREAS: Pancreas is atrophic and fatty replaced. SPLEEN: Spleen measures nearly 13 cm in AP dimension ADRENALS: There are no adrenal lesions seen.. KIDNEYS AND URETERS: Kidneys demonstrate relatively symmetric size and nephrograms. No evidence of nephrolithiasis or hydronephrosis. No obvious renal masses or collections. VASCULATURE: Unremarkable. No aortic aneurysm. Minimal aortic tic atherosclerotic calcification or mural plaque present. BOWEL: Evaluation of the bowel is somewhat limited due to incomplete opacification. The stomach is partially distended with oral contrast material and air. Visualized loops of small bowel exhibit normal contour and caliber. No evidence of acute mechanical small bowel obstruction. Apparent right hemicolectomy with and apparent anastomosis in the right hepatic flexure region.. There appears to be some localized wall thickening in the splenic flexure region which could be some combination of incomplete distension, peristalsis unopacified stool however given the patient's history of colon carcinoma follow-up of colonoscopy suggested if not recently performed to exclude the possibility of a invasive of colon wall lesion. APPENDIX: Not visualized PERITONEUM: Unremarkable. No free fluid. No free air. There is a relatively large fat containing left paraumbilical ventral wall hernia. LYMPH NODES: Unremarkable. No enlarged lymph nodes. BLADDER: The urinary bladder is partially distended with slight thick-walled appearance. Rule out cystitis... REPRODUCTIVE: Uterus appears unremarkable. BONES: Minor multilevel degenerative spondylosis of the lower thoracic and lumbar spine.. Mild scoliotic deformity seen at the lower thoracic and mid upper/mid lumbar spine region. Mild degenerative osteoarthritis both hip joints. OTHER FINDINGS: None. IMPRESSION: Apparent right hemicolectomy with anastomosis seen region of the hepatic flexure. Mild localized of discontinuous wall thickening in the splenic flexure region likely due to a combination of incomplete distension peristalsis and unopacified stool however given patient's history of colon carcinoma, follow-up colonoscopy if not recently performed recommended for further evaluation. Alternately, PET-CT scan may be prudent. Cholecystectomy. Borderline splenomegaly. Large hiatal hernia. Large fat containing left paraumbilical hernia.
--- NOTE | 2018-07-12 02:32 | PN ---
DATE: 07/11/2018 SUBJECTIVE: The patient is seen and examined at bedside. The patient is complaining of worsening dizziness upon getting up, claiming that the room is spinning around. She is not able to ambulate to the bathroom because of the dizziness. Denies any dyspnea on exertion. She claims that she had a history of vertigo, but she never got any medication in the past. Denies any other new complaints. PHYSICAL EXAMINATION: GENERAL: A middle-aged female, lying in bed, in no acute distress. VITAL SIGNS: Blood pressure 145/78, pulse 66, respirations 20, temperature 98.2 degrees Fahrenheit, O2 sats 97% on room air. HEENT: Pupils equal, round and reacting to light and accommodation. Extraocular muscles intact. No icterus. Positive pallor. No oral thrush. No pharyngeal congestion. NECK: Supple. No JVD. LUNGS: Bilateral vesicular breath sounds. No wheezing. No rhonchi. CARDIOVASCULAR SYSTEM: S1 and S2 present, regular. ABDOMEN: Soft, nontender. Bowel sounds present. No guarding. No rigidity. No rebound tenderness noted. CENTRAL NERVOUS SYSTEM: Alert, awake, oriented x3. No focal deficits noted. EXTREMITIES: No edema. Palpable peripheral pulses. MEDICATIONS: Include Maalox 30 mL as needed, B12 injections 1000 mcg daily, 125 mg IV daily, folic acid 1 mg daily, Lasix 20 mg as needed, Cozaar 25 mg daily, meclizine 12.5 mg p.o. every 8 hours p.r.n., Glucophage 850 mg p.o. b.i.d., Protonix 40 mg daily, Crestor 5 mg p.o. at bedtime. LABORATORY DATA: Labs from today: WBC 6.8, hemoglobin 9.1, hematocrit 28.9, platelets 184. Retic count 2.1. Sodium 138, potassium 4.6, chloride 103, bicarb 28, BUN 11, creatinine 0.6, glucose 117, calcium 8.4, ferritin 4.6, total bilirubin 1.6, AST 17, ALT 21, alkaline phosphatase 71, total protein 6.1, albumin 3.5. Folate more than 20. CT of the head, no acute intracranial hemorrhage, suspect minor chronic periventricular white matter ischemic changes, moderate generalized volume loss. CT of the abdomen and pelvis, mild localized discontinuous wall thickening in the splenic flexure region, likely due to a combination of incomplete distention peristalsis and unopacified stool, cholecystectomy, borderline splenomegaly, large hiatal hernia, large sac containing left paraumbilical hernia, biopsy consistent with benign gastric type mucosa showing mild acute inflammation and patchy intestinal metaplasia, mild chronic active gastritis. ASSESSMENT AND PLAN: A middle-aged female with a history of hypertension, diabetes mellitus, hyperlipidemia, anemia, status post partial colectomy for questionable premalignant lesion, admitted for severe symptomatic anemia, status post 2 units of packed red blood cell transfusion, now with persistent dizziness despite blood transfusion, possible benign positional vertigo. All the workup so far negative. Laboratory data consistent with iron deficiency anemia and B12 deficiency. Endoscopy consistent with hiatal hernia. Echocardiogram consistent with ejection fraction of 65% to 70%, moderate pulmonary hypertension. We will continue with intravenous iron supplementation. This patient is feeling better and symptoms improved. We will plan discharging the patient home if cleared by Hematology. Conrad Silva MD
[2018-07-12 07:59] LABS: BASO # 0.1 K/uL (0.0-0.2); BASO % 1.2 % (0.0-2.0); EOS # 0.1 K/uL (0.0-0.7); HEMOGLOBIN 9.4 g/dL (11.0-16.0); LYMPH # 0.7 K/uL (1.0-4.3); LYMPH % 13.9 % (20.0-40.0); MEAN CELL VOLUME 71.7 fL (81.0-99.0); MEAN CORPUSCULAR HEMOGLOBIN 22.3 pg (27.0-31.0); MEAN CORPUSCULAR HGB CONC 31.1 g/dL (33.0-37.0); MEAN PLATELET VOLUME 8.7 fL (7.2-11.7); MONO # 0.5 K/uL (0.0-0.8); MONO % 8.9 % (0.0-10.0); NRBC % 0.6 % (0.0-2.0); RBC 4.2 Mil/uL (3.80-5.20); RED CELL DISTRIBUTION WIDTH 32.3 % (11.5-14.5); WHITE BLOOD COUNT 5.3 K/uL (4.8-10.8)
[2018-07-12 08:06] LABS: ALB/GLOB RATIO 1.4 (1.0-2.1); ALBUMIN 3.8 g/dL (3.5-5.0); ALT/SGPT 12 U/L (9-52); AST/SGOT 21 U/L (14-36); BLOOD UREA NITROGEN 7 mg/dL (7-17); CALCIUM 8.7 mg/dl (8.6-10.4); GFR NON-AFRICAN AMERICAN > 60
[2018-07-12] MEDS: (Novolin R) Insulin Human Regular 100 units/ml vial SC SCH ×5 (08:22→21:39)
[2018-07-12] MEDS: Pantoprazole 40 mg EC Tab PO SCH (10:38)
[2018-07-12] MEDS: Ferric Sodium Gluconat Complex 62.5 mg/5 ml Vial IVPB SCH (10:39)
--- NOTE | 2018-07-12 16:01 | CP.PCM.PN ---
Subjective - Date & Time of Evaluation Date of Evaluation: 07/12/18 Time of Evaluation: 16:01 - Subjective Subjective: Progress note dictated #[id number] Objective - Vital Signs/Intake and Output Vital Signs (last 24 hours): Temp Pulse Resp BP Pulse Ox 98.2 F 75 20 107/59 L 94 L 07/12/18 07:00 07/12/18 07:00 07/12/18 07:00 07/12/18 07:00 07/12/18 07:00 Intake and Output: 07/12/18 07/12/18 06:59 18:59 Intake Total 600 Balance 600 - Medications Medications: Current Medications Al Hydrox/Mg Hydrox/Simethicone (Maalox 30 Ml) 30 ml PO Q8 PRN PRN Reason: Indigestion / Heartburn Last Admin: 07/11/18 17:50 Dose: 30 ml Cyanocobalamin (Vitamin B12 1000 Mcg/Ml Inj) 1,000 mcg IM DAILY [facility] Last Admin: 07/12/18 10:39 Dose: 1,000 mcg Ferric Sodium Gluconate Complex (Ferrlecit) 125 mg IVPB DAILY [facility] Stop: 07/19/18 10:01 Last Admin: 07/12/18 10:39 Dose: 125 mg Folic Acid (Folic Acid) 1 mg PO DAILY [facility] Last Admin: 07/12/18 10:38 Dose: 1 mg Furosemide (Lasix) 20 mg IVP ONCE PRN PRN Reason: in between blood transfusions Last Admin: 07/10/18 18:38 Dose: 20 mg Insulin Human Regular (Novolin R) 0 unit SC [facility]; Protocol Last Admin: 07/12/18 11:30 Dose: Not Given Losartan Potassium (Cozaar) 25 mg PO DAILY [facility] Last Admin: 07/12/18 10:38 Dose: 25 mg Meclizine HCl (Antivert) 12.5 mg PO Q8H PRN PRN Reason: Dizziness Last Admin: 07/12/18 10:39 Dose: 12.5 mg Metformin HCl (Glucophage) 850 mg PO BID [facility] Last Admin: 07/12/18 10:38 Dose: 850 mg Pantoprazole Sodium (Protonix Ec Tab) 40 mg PO DAILY [facility] Last Admin: 07/12/18 10:38 Dose: 40 mg Rosuvastatin Calcium (Crestor) 5 mg PO HS [facility] Last Admin: 07/11/18 21:13 Dose: 5 mg - Labs Labs: 07/12/18 07:43 07/12/18 07:43 PT 13.1 SECONDS (9.7-12.2) H 07/10/18 06:56 INR 1.2 07/10/18 06:56 APTT 30 SECONDS (21-34) 07/10/18 06:56
[2018-07-12] MEDS ORDERED: guaiFENesin 100 mg/5 ml Syrup UD PO PRN (16:11)
[2018-07-12] MEDS: Aluminum Hydroxide/Magnesium Hydroxide Susp (30 mL) PO PRN (17:44)
--- NOTE | 2018-07-12 23:42 | PN ---
DATE: 07/12/2018 SUBJECTIVE: The patient was seen and examined at bedside. The patient complains of less dizziness. Still not able to ambulate. She had temperatures overnight. Complaining of persistent cough with clear sputum and complaining of sore throat. Denies any chest pain or shortness of breath. PHYSICAL EXAMINATION: GENERAL: Middle-aged female, lying in bed, in no acute distress. VITAL SIGNS: Blood pressure 107/59, pulse 75, respirations 20, temperature 100 degrees this morning, T-max is 100.7 degrees Fahrenheit, O2 sat is 94% on room air. HEENT: Pupils equal, round, and reacting to light and accommodation. Extraocular muscles intact. No icterus. Positive pallor. No oral thrush. No pharyngeal congestion. NECK: Supple. No JVD. LUNGS: Bilateral vesicular breath sounds. No wheezing. No rhonchi. CARDIOVASCULAR SYSTEM: S1 and S2 present, regular. ABDOMEN: Soft and nontender. Bowel sounds are present. No guarding. No rigidity. No rebound tenderness noted. CENTRAL NERVOUS SYSTEM: Alert, awake, and oriented x3. No focal deficits noted. EXTREMITIES: No edema. Palpable peripheral pulses. MEDICATIONS: Include Maalox as needed, cyanocobalamin 1000 mcg daily, ferrous gluconate 125 mg IV daily, folic acid 1 mg daily, Robitussin 100 mg p.o. every 4 hours p.r.n., losartan 25 mg daily, Antivert 12.5 mg p.r.n., Glucophage 850 mg b.i.d., Protonix 40 mg daily, Crestor 5 mg p.o. at bedtime. LABORATORY DATA: Labs from this morning: WBC 5.3, hemoglobin 9.4, hematocrit 30.1, platelets 193. Sodium 134, potassium 4.1, chloride 100, bicarb 27, BUN 7, creatinine 0.6, glucose 139, calcium 8.7, phosphorous 5, magnesium 2.2. Total bilirubin 1.5. Other LFTs within normal limits. ASSESSMENT AND PLAN: Middle-aged female with past medical history of hypertension, diabetes mellitus, hyperlipidemia, anemia. Admitted for severe symptomatic anemia, found to be having severe iron-deficiency anemia, B12 deficiency and dizziness, possible benign positional vertigo and low-grade temperatures overnight, questionable etiology, receiving intravenous iron therapy. No other signs of infection other than acute bronchitis. Rule out secondary to procedure. We will give Robitussin as needed, cough lozenges. We will do blood cultures if the patient spikes again. We will hold off antibiotics for now. Continue with other current therapy. If the patient remains afebrile in the morning, we will plan discharging the patient home. Advised the patient to ambulate. Continue with other current medications. Conrad Silva MD
[2018-07-13] MEDS: (Novolin R) Insulin Human Regular 100 units/ml vial SC SCH ×4 (07:45→21:30)
[2018-07-13 08:17] LABS: BASO # 0.1 K/uL (0.0-0.2); BASO % 1.9 % (0.0-2.0); EOS # 0.1 K/uL (0.0-0.7); EOS % 3.1 % (0.0-4.0); HEMOGLOBIN 9.6 g/dL (11.0-16.0); LYMPH # 0.9 K/uL (1.0-4.3); LYMPH % 22.2 % (20.0-40.0); MEAN CELL VOLUME 72.3 fL (81.0-99.0); MEAN CORPUSCULAR HEMOGLOBIN 22.1 pg (27.0-31.0); MEAN CORPUSCULAR HGB CONC 30.6 g/dL (33.0-37.0); MEAN PLATELET VOLUME 8.8 fL (7.2-11.7); MONO # 0.4 K/uL (0.0-0.8); MONO % 11.5 % (0.0-10.0); NEUT # 2.4 K/uL (1.8-7.0); NEUT % 61.3 % (50.0-75.0); NRBC % 0.4 % (0.0-2.0); RBC 4.33 Mil/uL (3.80-5.20); RED CELL DISTRIBUTION WIDTH 32.8 % (11.5-14.5); WHITE BLOOD COUNT 3.9 K/uL (4.8-10.8)
[2018-07-13 08:31] LABS: ALB/GLOB RATIO 1.4 (1.0-2.1); ALBUMIN 3.6 g/dL (3.5-5.0); ALT/SGPT 18 U/L (9-52); AST/SGOT 25 U/L (14-36); BLOOD UREA NITROGEN 8 mg/dL (7-17); CALCIUM 8.1 mg/dl (8.6-10.4); GFR NON-AFRICAN AMERICAN > 60
[2018-07-13] MEDS: Pantoprazole 40 mg EC Tab PO SCH (09:22)
[2018-07-13] MEDS: Ferric Sodium Gluconat Complex 62.5 mg/5 ml Vial IVPB SCH (09:23)
--- NOTE | 2018-07-13 12:59 | RAD ---
Date of service: 07/13/2018 HISTORY: low grade temp COMPARISON: 07/09/2018 TECHNIQUE: Chest PA and lateral FINDINGS: LUNGS: No active pulmonary disease. PLEURA: No significant pleural effusion identified. No pneumothorax apparent. CARDIOVASCULAR: No aortic atherosclerotic calcification present. Normal cardiac size. Hiatal hernia with air-fluid level. OSSEOUS STRUCTURES: No significant abnormalities. VISUALIZED UPPER ABDOMEN: Normal. OTHER FINDINGS: None. IMPRESSION: No acute infiltrate. Hiatal hernia noted.
[2018-07-13 15:21] LABS: URINE AMORPHOUS SEDIMENT MANY /ul (<OCC); URINE BACTERIA RARE (<OCC); URINE BILIRUBIN NEGATIVE (NEGATIVE); URINE BLOOD NEGATIVE (NEGATIVE); URINE CLARITY Turbid (Clear); URINE COLOR Yellow (YELLOW); URINE GLUCOSE (UA) NORMAL (Normal); URINE LEUKOCYTE ESTERASE NEG Leu/uL (Negative); URINE PROTEIN NEGATIVE (NEGATIVE); URINE UROBILINOGEN NORMAL mg/dL (0.2-1.0)
--- NOTE | 2018-07-13 15:57 | CP.PCM.PN ---
Subjective - Date & Time of Evaluation Date of Evaluation: 07/13/18 Time of Evaluation: 15:57 - Subjective Subjective: Progress note dictated #[id number] Objective - Vital Signs/Intake and Output Vital Signs (last 24 hours): Temp Pulse Resp BP Pulse Ox 98.8 F 78 20 132/70 94 L 07/13/18 13:00 07/13/18 12:00 07/13/18 07:00 07/13/18 07:00 07/13/18 07:00 Intake and Output: 07/13/18 07/13/18 06:59 18:59 Intake Total 900 Balance 900 - Medications Medications: Current Medications Acetaminophen (Tylenol 325mg Tab) 650 mg PO Q6 PRN PRN Reason: Fever >100.4 F Last Admin: 07/13/18 00:11 Dose: 650 mg Al Hydrox/Mg Hydrox/Simethicone (Maalox 30 Ml) 30 ml PO Q8 PRN PRN Reason: Indigestion / Heartburn Last Admin: 07/12/18 17:44 Dose: 30 ml Cyanocobalamin (Vitamin B12 1000 Mcg/Ml Inj) 1,000 mcg IM DAILY [facility] Last Admin: 07/13/18 09:22 Dose: 1,000 mcg Ferric Sodium Gluconate Complex (Ferrlecit) 125 mg IVPB DAILY [facility] Stop: 07/19/18 10:01 Last Admin: 07/13/18 09:23 Dose: 125 mg Folic Acid (Folic Acid) 1 mg PO DAILY [facility] Last Admin: 07/13/18 09:22 Dose: 1 mg Furosemide (Lasix) 20 mg IVP ONCE PRN PRN Reason: in between blood transfusions Last Admin: 07/10/18 18:38 Dose: 20 mg Guaifenesin (Robitussin) 100 mg PO Q4H PRN PRN Reason: Cough Insulin Human Regular (Novolin R) 0 unit SC [facility]; Protocol Last Admin: 07/13/18 12:08 Dose: Not Given Losartan Potassium (Cozaar) 25 mg PO DAILY [facility] Last Admin: 07/13/18 09:22 Dose: 25 mg Meclizine HCl (Antivert) 12.5 mg PO Q8H PRN PRN Reason: Dizziness Last Admin: 07/12/18 10:39 Dose: 12.5 mg Metformin HCl (Glucophage) 850 mg PO BID [facility] Last Admin: 07/12/18 10:38 Dose: 850 mg Pantoprazole Sodium (Protonix Ec Tab) 40 mg PO DAILY [facility] Last Admin: 07/13/18 09:22 Dose: 40 mg Rosuvastatin Calcium (Crestor) 5 mg PO HS [facility] Last Admin: 07/12/18 22:07 Dose: 5 mg - Labs Labs: 07/13/18 08:06 07/13/18 08:06 PT 13.1 SECONDS (9.7-12.2) H 07/10/18 06:56 INR 1.2 07/10/18 06:56 APTT 30 SECONDS (21-34) 07/10/18 06:56
[2018-07-13] MEDS: Bacitracin/Neomycin/Polymyxin Oint(30GM) TOP SCH ×2 (17:15→23:45)
--- NOTE | 2018-07-13 22:33 | CP.PCM.PN ---
Subjective - Date & Time of Evaluation Date of Evaluation: 07/11/18 Time of Evaluation: 19:00 - Subjective Subjective: Feeling better after transfusion Objective - Vital Signs/Intake and Output Vital Signs (last 24 hours): Temp Pulse Resp BP Pulse Ox 98.8 F 78 20 132/70 94 L 07/13/18 13:00 07/13/18 12:00 07/13/18 07:00 07/13/18 07:00 07/13/18 07:00 Intake and Output: 07/13/18 07/14/18 18:59 06:59 Intake Total 900 Balance 900 - Medications Medications: Current Medications Acetaminophen (Tylenol 325mg Tab) 650 mg PO Q6 PRN PRN Reason: Fever >100.4 F Last Admin: 07/13/18 00:11 Dose: 650 mg Al Hydrox/Mg Hydrox/Simethicone (Maalox 30 Ml) 30 ml PO Q8 PRN PRN Reason: Indigestion / Heartburn Last Admin: 07/12/18 17:44 Dose: 30 ml Cyanocobalamin (Vitamin B12 1000 Mcg/Ml Inj) 1,000 mcg IM DAILY [facility] Last Admin: 07/13/18 09:22 Dose: 1,000 mcg Ferric Sodium Gluconate Complex (Ferrlecit) 125 mg IVPB DAILY [facility] Stop: 07/19/18 10:01 Last Admin: 07/13/18 09:23 Dose: 125 mg Folic Acid (Folic Acid) 1 mg PO DAILY [facility] Last Admin: 07/13/18 09:22 Dose: 1 mg Furosemide (Lasix) 20 mg IVP ONCE PRN PRN Reason: in between blood transfusions Last Admin: 07/10/18 18:38 Dose: 20 mg Guaifenesin (Robitussin) 100 mg PO Q4H PRN PRN Reason: Cough Insulin Human Regular (Novolin R) 0 unit SC [facility]; Protocol Last Admin: 07/13/18 21:30 Dose: Not Given Losartan Potassium (Cozaar) 25 mg PO DAILY [facility] Last Admin: 07/13/18 09:22 Dose: 25 mg Meclizine HCl (Antivert) 12.5 mg PO Q8H PRN PRN Reason: Dizziness Last Admin: 07/12/18 10:39 Dose: 12.5 mg Metformin HCl (Glucophage) 850 mg PO BID [facility] Last Admin: 07/12/18 10:38 Dose: 850 mg Neomycin/Polymyxin/Bacitracin (Neosporin Triple Antibiotic Oint) 1 gm TOP Q8H [facility] Last Admin: 07/13/18 17:15 Dose: 1 oin Pantoprazole Sodium (Protonix Ec Tab) 40 mg PO DAILY [facility] Last Admin: 07/13/18 09:22 Dose: 40 mg Rosuvastatin Calcium (Crestor) 5 mg PO HS [facility] Last Admin: 07/13/18 21:30 Dose: 5 mg - Labs Labs: 07/13/18 08:06 07/13/18 08:06 PT 13.1 SECONDS (9.7-12.2) H 07/10/18 06:56 INR 1.2 07/10/18 06:56 APTT 30 SECONDS (21-34) 07/10/18 06:56 - Head Exam Head Exam: ATRAUMATIC - Eye Exam Eye Exam: Normal appearance - ENT Exam ENT Exam: Mucous Membranes Dry - Respiratory Exam Respiratory Exam: NORMAL BREATHING PATTERN - Cardiovascular Exam Cardiovascular Exam: +S1, +S2 - GI/Abdominal Exam GI & Abdominal Exam: Normal Bowel Sounds Assessment and Plan (1) Anemia Assessment & Plan: s/p PRBC transfusion EGD/colonscopy negative for acute bleeding; outpatient capsule endoscopy no blood in urine by UA on IV iron Status: Acute (2) Leukopenia Assessment & Plan: mild, no neutropenia Status: Acute
--- NOTE | 2018-07-13 22:34 | CP.PCM.PN ---
Subjective - Date & Time of Evaluation Date of Evaluation: 07/12/18 Time of Evaluation: 18:00 - Subjective Subjective: Feels better Objective - Vital Signs/Intake and Output Vital Signs (last 24 hours): Temp Pulse Resp BP Pulse Ox 98.8 F 78 20 132/70 94 L 07/13/18 13:00 07/13/18 12:00 07/13/18 07:00 07/13/18 07:00 07/13/18 07:00 Intake and Output: 07/13/18 07/14/18 18:59 06:59 Intake Total 900 Balance 900 - Medications Medications: Current Medications Acetaminophen (Tylenol 325mg Tab) 650 mg PO Q6 PRN PRN Reason: Fever >100.4 F Last Admin: 07/13/18 00:11 Dose: 650 mg Al Hydrox/Mg Hydrox/Simethicone (Maalox 30 Ml) 30 ml PO Q8 PRN PRN Reason: Indigestion / Heartburn Last Admin: 07/12/18 17:44 Dose: 30 ml Cyanocobalamin (Vitamin B12 1000 Mcg/Ml Inj) 1,000 mcg IM DAILY [facility] Last Admin: 07/13/18 09:22 Dose: 1,000 mcg Ferric Sodium Gluconate Complex (Ferrlecit) 125 mg IVPB DAILY [facility] Stop: 07/19/18 10:01 Last Admin: 07/13/18 09:23 Dose: 125 mg Folic Acid (Folic Acid) 1 mg PO DAILY [facility] Last Admin: 07/13/18 09:22 Dose: 1 mg Furosemide (Lasix) 20 mg IVP ONCE PRN PRN Reason: in between blood transfusions Last Admin: 07/10/18 18:38 Dose: 20 mg Guaifenesin (Robitussin) 100 mg PO Q4H PRN PRN Reason: Cough Insulin Human Regular (Novolin R) 0 unit SC [facility]; Protocol Last Admin: 07/13/18 21:30 Dose: Not Given Losartan Potassium (Cozaar) 25 mg PO DAILY [facility] Last Admin: 07/13/18 09:22 Dose: 25 mg Meclizine HCl (Antivert) 12.5 mg PO Q8H PRN PRN Reason: Dizziness Last Admin: 07/12/18 10:39 Dose: 12.5 mg Metformin HCl (Glucophage) 850 mg PO BID [facility] Last Admin: 07/12/18 10:38 Dose: 850 mg Neomycin/Polymyxin/Bacitracin (Neosporin Triple Antibiotic Oint) 1 gm TOP Q8H [facility] Last Admin: 07/13/18 17:15 Dose: 1 oin Pantoprazole Sodium (Protonix Ec Tab) 40 mg PO DAILY [facility] Last Admin: 07/13/18 09:22 Dose: 40 mg Rosuvastatin Calcium (Crestor) 5 mg PO HS [facility] Last Admin: 07/13/18 21:30 Dose: 5 mg - Labs Labs: 07/13/18 08:06 07/13/18 08:06 PT 13.1 SECONDS (9.7-12.2) H 07/10/18 06:56 INR 1.2 07/10/18 06:56 APTT 30 SECONDS (21-34) 07/10/18 06:56 - Head Exam Head Exam: ATRAUMATIC - Eye Exam Eye Exam: Normal appearance - ENT Exam ENT Exam: Mucous Membranes Dry - Respiratory Exam Respiratory Exam: NORMAL BREATHING PATTERN - Cardiovascular Exam Cardiovascular Exam: +S1, +S2 - GI/Abdominal Exam GI & Abdominal Exam: Normal Bowel Sounds Assessment and Plan (1) Anemia Assessment & Plan: s/p PRBC transfusion EGD/colonscopy negative for acute bleeding; outpatient capsule endoscopy no blood in urine by UA on IV iron Status: Acute (2) Leukopenia Assessment & Plan: mild no neutropenia Status: Acute
--- NOTE | 2018-07-14 02:35 | PN ---
DATE: 07/13/2018 SUBJECTIVE: The patient is seen and examined at bedside. The patient is still complaining of intermittent dizziness, complaining of left upper extremity erythema, swelling and pain at the IV site. Denies any chest pain. Cough is better today. Less shortness on breath on ambulation. PHYSICAL EXAMINATION: GENERAL: Middle-aged female, lying in bed, in no acute distress. VITAL SIGNS: Blood pressure 132/70, pulse is 78, respirations 20, temperature 98.8 degrees Fahrenheit, T-max is 100.5 degrees Fahrenheit. HEENT: Pupils equal, round and reacting to light and accommodation. Extraocular muscles intact. No icterus. Positive pallor. No oral thrush. No pharyngeal congestion. NECK: Supple. No JVD. LUNGS: Bilateral vesicular breath sounds. No wheezing. No rhonchi. CARDIOVASCULAR SYSTEM: S1 and S2 present, regular. ABDOMEN: Soft and nontender. Bowel sounds are present. No guarding. No rigidity. No rebound tenderness noted. CENTRAL NERVOUS SYSTEM: Alert, awake, oriented x3. No focal deficits noted. EXTREMITIES: No edema. Left upper extremity at the antecubital region, erythema present, tenderness present, swelling present at the IV site. MEDICATIONS: Singulair, Tylenol as needed, Maalox as needed, B12 of 1000 mcg daily, Ferrlecit 125 mg IV daily, folic acid 1 mg daily, Lasix as needed, Robitussin 100 mg as needed, losartan 25 mg daily, meclizine 12.5 mg p.o. every 8 hours, Glucophage 850 mg p.o. b.i.d., triple antibiotic, Protonix 40 mg daily, Crestor 5 mg p.o. at bedtime. LABORATORY DATA: Labs done this morning: WBC 3.9, hemoglobin 9.6, hematocrit 31.3, platelets 160. Sodium 134, potassium 4.1, chloride 104, bicarb 34, BUN 8, creatinine 0.4, glucose 104, calcium 8.1. Total bilirubin 0.8, AST 25, ALT 18, alkaline phosphatase 71, total troponin 6.3, albumin 3.6. UA negative. Chest x-ray negative. Blood cultures are done this morning. ASSESSMENT AND PLAN: A middle-aged female with a history of hypertension, diabetes mellitus, hyperlipidemia, anemia, admitted for severe symptomatic anemia secondary to iron deficiency and B12 deficiency. All the workup so far negative except hiatal hernia with low-grade temperature, receiving intravenous Ferrlecit. There was no obvious source of infection. The low-grade temperature is probably from intravenous Ferrlecit and left upper extremity localized cellulitis. Cough is improving. Dizziness is better on meclizine. Continue with current medication. Follow up with blood culture results. Continue with other current therapy. We will hold antibiotics for now. If remains afebrile, we will plan discharging the patient home in a.m. Conrad Silva MD
[2018-07-14] MEDS: (Novolin R) Insulin Human Regular 100 units/ml vial SC SCH ×2 (07:30→11:37)
[2018-07-14] MEDS: Bacitracin/Neomycin/Polymyxin Oint(30GM) TOP SCH (08:09)
[2018-07-14 08:15] VITALS: BP 110/60; PULSE 74; TEMP 98.9; O2SAT 95
--- NOTE | 2018-07-14 09:48 | CP.PCM.PN ---
Subjective - Date & Time of Evaluation Date of Evaluation: 07/14/18 Time of Evaluation: 09:48 - Subjective Subjective: Discharge summary dictated #[id number] Objective - Vital Signs/Intake and Output Vital Signs (last 24 hours): Temp Pulse Resp BP Pulse Ox 98.9 F 74 20 110/60 95 07/14/18 07:00 07/14/18 07:00 07/14/18 07:00 07/14/18 07:00 07/14/18 07:00 - Medications Medications: Current Medications Acetaminophen (Tylenol 325mg Tab) 650 mg PO Q6 PRN PRN Reason: Fever >100.4 F Last Admin: 07/13/18 00:11 Dose: 650 mg Al Hydrox/Mg Hydrox/Simethicone (Maalox 30 Ml) 30 ml PO Q8 PRN PRN Reason: Indigestion / Heartburn Last Admin: 07/12/18 17:44 Dose: 30 ml Ferric Sodium Gluconate Complex (Ferrlecit) 125 mg IVPB DAILY [facility] Stop: 07/19/18 10:01 Last Admin: 07/13/18 09:23 Dose: 125 mg Folic Acid (Folic Acid) 1 mg PO DAILY [facility] Last Admin: 07/13/18 09:22 Dose: 1 mg Furosemide (Lasix) 20 mg IVP ONCE PRN PRN Reason: in between blood transfusions Last Admin: 07/10/18 18:38 Dose: 20 mg Guaifenesin (Robitussin) 100 mg PO Q4H PRN PRN Reason: Cough Insulin Human Regular (Novolin R) 0 unit SC [facility]; Protocol Last Admin: 07/14/18 07:30 Dose: Not Given Losartan Potassium (Cozaar) 25 mg PO DAILY [facility] Last Admin: 07/13/18 09:22 Dose: 25 mg Meclizine HCl (Antivert) 12.5 mg PO Q8H PRN PRN Reason: Dizziness Last Admin: 07/12/18 10:39 Dose: 12.5 mg Metformin HCl (Glucophage) 850 mg PO BID [facility] Last Admin: 07/12/18 10:38 Dose: 850 mg Neomycin/Polymyxin/Bacitracin (Neosporin Triple Antibiotic Oint) 1 gm TOP Q8H [facility] Last Admin: 07/14/18 08:09 Dose: 1 oin Pantoprazole Sodium (Protonix Ec Tab) 40 mg PO DAILY [facility] Last Admin: 07/13/18 09:22 Dose: 40 mg Rosuvastatin Calcium (Crestor) 5 mg PO HS [facility] Last Admin: 07/13/18 21:30 Dose: 5 mg - Labs Labs: 07/13/18 08:06 07/13/18 08:06 PT 13.1 SECONDS (9.7-12.2) H 07/10/18 06:56 INR 1.2 07/10/18 06:56 APTT 30 SECONDS (21-34) 07/10/18 06:56
[2018-07-14] MEDS: Ferric Sodium Gluconat Complex 62.5 mg/5 ml Vial IVPB SCH (10:28)
[2018-07-14] MEDS: Pantoprazole 40 mg EC Tab PO SCH (10:28)
--- NOTE | 2018-07-15 12:20 | DS ---
DISCHARGE DIAGNOSES: Severe symptomatic iron-deficiency anemia, B12 deficiency, status post esophagogastroduodenoscopy consistent with hiatal hernia, status post colonoscopy, hypertension, diabetes mellitus, hyperlipidemia, history of rheumatoid arthritis, history of partial colectomy for questionable premalignant lesion of the colon, status post dizziness, possible benign positional vertigo, low-grade fever probably secondary to intravenous iron therapy. Blood cultures and urine cultures remain negative as of today. HISTORY OF PRESENT ILLNESS: Ms. Prather is a 63-year-old female with past medical history of rheumatoid arthritis, hypertension, diabetes mellitus, hyperlipidemia, anemia, underwent partial colectomy for possible precancerous tumor of the colon. Had recent colonoscopy done in 2017. Admitted to the hospital for severe symptomatic anemia with hemoglobin of 4.5, for further evaluation and management. Today, the patient is feeling better. Denies any headache, dizziness. Denies any chest pain, shortness of breath, or wheezing. Denies any nausea, vomiting, abdominal pain, diarrhea, or constipation. Denies any urinary complaints. Denies any leg pains or leg cramps. Her dizziness is better. All other systems reviewed and were found to be negative. PHYSICAL EXAMINATION: GENERAL: A middle-aged female lying in bed in no acute distress. VITAL SIGNS: Blood pressure 110/60, pulse 74, respirations 20, temperature 98.9 degrees Fahrenheit, O2 sat is 95% on room air. HEENT: Pupils equal, round, reacting to light and accommodation. Extraocular muscles intact. No icterus. No pallor. No oral thrush. No pharyngeal congestion. NECK: Supple. No JVD. LUNGS: Bilateral vesicular breath sounds. No wheezing. No rhonchi. CARDIOVASCULAR SYSTEM: S1, S2 present, regular. ABDOMEN: Soft, nontender. Bowel sounds present. No guarding. No rigidity. No rebound tenderness noted. CENTRAL NERVOUS SYSTEM: Alert, awake, oriented x3. No focal deficits noted. EXTREMITIES: No edema. Palpable peripheral pulses. LABORATORY DATA: WBC 3.9, hemoglobin 9.6, hematocrit 31.3, platelets 160. Sodium 134, potassium 4.1, chloride 104, bicarb 24, BUN 8, creatinine 0.4, glucose 104, calcium 8.1. Total bilirubin 0.8, AST 25, ALT 18, alkaline phosphatase 71, total protein 6.3, albumin 3.6. UA negative. Chest x-ray negative. Urine culture negative. Blood culture x2 negative so far. CT scan of the abdomen and pelvis negative. CT head negative. HOSPITAL COURSE: The patient was admitted to the hospital for severe symptomatic anemia. Received two units of PRBC. Her hemoglobin improved. Underwent EGD and colonoscopy, which did not show any gastritis or any signs of bleeding other than hiatal hernia. The patient was also found to be having low B12 levels. She was started on B12 and IV iron therapy. The patient was evaluated by Hematology. Her CEA levels were normal. During her hospital course, she complained of dizziness even after her hemoglobin is improved. The patient claimed that she had history of benign positional vertigo in the past. Her CT scan was negative. The patient was started on meclizine with which her symptoms improved. The patient also developed low-grade temperatures up to 100.8 of T-max. The patient has been receiving IV iron therapy. All her fever workup was negative to date. Her fever may be from IV iron therapy. Advised the patient to monitor at home and return to the ED if any worsening of her symptoms. Advised the patient to follow up with Hematology and GI as outpatient for further workup and monitoring. The patient understands the need and would like to follow up with her primary care physician. CONDITION UPON DISCHARGE: The patient is alert, awake, oriented x3, and hemodynamically stable at the time of discharge. DISCHARGE MEDICATIONS: Include Lipitor 10 mg at bedtime, folic acid 1 mg daily, losartan 25 mg daily, metformin 850 b.i.d., methotrexate 2.5 mg daily, Protonix 40 mg daily, B12 of 1000 mcg daily, Colace 100 mg p.o. b.i.d., ferrous sulfate 325 mg p.o. t.i.d., meclizine 12.5 mg p.o. every 8 hours p.r.n. DISCHARGE DIET: Low-sodium, low-cholesterol 1800 calorie ADA diet. ACTIVITY: As tolerated. DISCHARGE INSTRUCTIONS: Follow up with PMD. Follow up with GI for possible capsule endoscopy as outpatient and follow up with Hematology. Conrad Silva MD [facility] # [id number]
== END 2018-07-14 13:23 | disposition home or self-care (01) | DRG 663 ==
LOC: C.ER 11:22 → C.6T 14:11
PROVIDERS: ADMIT Internal Medicine; ATTEND Internal Medicine
PROC: 0DB98ZX Excision of Duodenum, Via Natural or Artificial Opening Endoscopic, Diagnostic (ICD-10-PCS; 2018-07-10)
PROC: 0DB68ZX Excision of Stomach, Via Natural or Artificial Opening Endoscopic, Diagnostic (ICD-10-PCS; 2018-07-10)
PROC: 0DB58ZX Excision of Esophagus, Via Natural or Artificial Opening Endoscopic, Diagnostic (ICD-10-PCS; 2018-07-10)
PROC: 0DJD8ZZ Inspection of Lower Intestinal Tract, Via Natural or Artificial Opening Endoscopic (ICD-10-PCS; 2018-07-10 13:40)
PROC: 30233N1 Transfusion of Nonautologous Red Blood Cells into Peripheral Vein, Percutaneous Approach (ICD-10-PCS; principal; 2018-07-11)
DX: D50.9 Iron deficiency anemia, unspecified (principal); I27.20 Pulmonary hypertension, unspecified; I10 Essential (primary) hypertension; D72.819 Decreased white blood cell count, unspecified; E78.00 Pure hypercholesterolemia, unspecified; K44.9 Diaphragmatic hernia without obstruction or gangrene; L03.114 Cellulitis of left upper limb; M06.9 Rheumatoid arthritis, unspecified; K57.30 Diverticulosis of large intestine without perforation or abscess without bleeding; K64.1 Second degree hemorrhoids; K20.9 Esophagitis, unspecified